=== PATIENT | female | born 1990 | race Caucasian/White ===

== ENCOUNTER 2018-08-26 17:57 | Emergency (ER) | payer OTHER ==
[~2018-08-26] VITALS: Ht 170.2 cm; Wt 76.0 kg
[~2018-08-26 17:57] MED LIST: NAPR-985 PO; [UNRECOGNIZED DRUG - CODE]
[2018-08-26 18:05] VITALS: Ht 170.2 cm; Wt 76.0 kg
[2018-08-26] MEDS ORDERED: IBUPROFEN 600 MG TAB PO ONE (19:00)
[2018-08-26] MEDS ORDERED: DIAZEPAM 5 MG TAB PO ONE (19:00)
--- NOTE | 2018-08-26 19:24 | ERD ---
ER Documentation Chief Complaint Chief Complaint right knee pain today, no injury HPI 27-year-old female presented to the emergency department complaining of right knee pain after injury today. She states she was at the pool with her siblings when she went down a slide and when she got out of the pool she accidentally twisted the right knee causing injury. She reports 10/10 right knee pain which is constant and worse with movement. She took no medication for relief of symptoms. She denies any head injury or loss of consciousness. She denies any other symptoms or injuries at this time. ROS All systems reviewed and are negative except as per history of present illness. Medications Home Meds Active Scripts Naproxen* (Naprosyn*) 500 Mg Tablet, 500 MG PO BID PRN for PAIN AND/OR INFLAMMATION, #30 TAB Prov:CARLY LEMON PA-C 08/26/18 Reported Medications Acetaminophn/Pyr Ma/Pamabrom (Pamprin Multi-Symptom Tab) 1 Tab Tablet 08/01/10 Allergies Allergies: Coded Allergies: Nickel (Verified Allergy, Mild, RASH, 08/01/10) PMhx/Soc History of Surgery: Yes (gastric sleeve) Anesthesia Reaction: No Hx Neurological Disorder: No Hx Respiratory Disorders: No Hx Cardiac Disorders: No Hx Psychiatric Problems: No Hx Miscellaneous Medical Probl: No Hx Alcohol Use: Yes (ON OCCASSION) Hx Substance Use: Yes (MARIJUANA DAILY) Hx Tobacco Use: No Smoking Status: Never smoker FmHx Family History: No diabetes Physical Exam Vitals Vital Signs Date Temp Pulse Resp B/P (MAP) Pulse Ox O2 O2 Flow FiO2 Time Delivery Rate 08/26/18 97.8 84 18 116/57 100 18:05 (76) Physical Exam Const: No acute distress Head: Atraumatic Eyes: Normal Conjunctiva ENT: Normal External Ears, Nose and Mouth. Neck: Full range of motion. No meningismus. Resp: No respiratory distress. Skin: No petechiae or rashes Ext: R Knee is stuck in flexed position at approximately 45 degrees. Unable to fully extend knee secondary to pain. Tenderness palpation of the anterior and posterior right knee. Unable to complete special testing of the knee secondary to pain. Neur: Awake and alert Psych: Normal Mood and Affect Results 24 hrs Laboratory Tests Test 08/26/18 18:52 POC Beta HCG, Qualitative NEGATIVE Current Medications Medications Dose Sig/Daron Start Time Status Last (Trade) Ordered Route PRN Stop Time Admin Dose Reason Admin Ibuprofen 600 mg ONCE ONCE 08/26/18 DC 08/26/18 (Motrin) PO 19:00 18:57 08/26/18 19:01 Diazepam 5 mg ONCE ONCE 08/26/18 DC 08/26/18 (Valium) PO 19:00 18:57 08/26/18 19:01 1 tab ONCE ONCE 08/26/18 DC 08/26/18 Acetaminophen PO 21:00 20:40 / 08/26/18 21:01 Hydrocodone Bitart ([place] ()) Ondansetron 4 mg ONCE STAT 08/26/18 DC 08/26/18 HCl (Zofran ODT 20:33 20:40 Odt) 08/26/18 20:[address] [address] Radiology Main Line: [phone] DIAGNOSTIC IMAGING REPORT Patient: PETRA MACIAS : 1990 Age: 27 Sex: F MR #: [id number] DOS: 08/26/18 0000 Ordering MD: CARLY LEMON PA-C Location: [facility] Room/Bed: PROCEDURE: Ultrasound examination of the right lower extremity with Doppler. CLINICAL INDICATION: Right leg pain and swelling. TECHNIQUE: Multiple sonographic images of the right lower extremity were performed with berg scale and color Doppler. COMPARISON: None. FINDINGS: The right common femoral, superficial femoral and popliteal veins demonstrate normal color flow, waveforms, compression and response augmentation. There is no evidence of deep venous thrombosis. IMPRESSION: No evidence of deep venous thrombosis within the right lower extremity. .Wicho Naranjo MD, MD Date Time Electronically viewed and signed by .Wicho Naranjo MD, MD on 08/26/2018 20:06 .T/ CC: CARLY LEMON PA-C [id number] [address], [place] [address] Radiology Main Line: [phone] DIAGNOSTIC IMAGING REPORT Patient: PETRA MACIAS : 1990 Age: 27 Sex: F MR #: [id number] DOS: 08/26/18 0000 Ordering MD: CARLY LEMON PA-C Location: [facility] Room/Bed: PROCEDURE: Right knee. CLINICAL INDICATION: Pain. TECHNIQUE: 4 views including AP, lateral and oblique views of the right knee were obtained. The images reviewed on a PACS workstation. COMPARISON: None. FINDINGS: There is no fracture, dislocation or bone destruction. There is no significant joint space narrowing or effusion. Bone mineralization is within normal limits. There is no radiopaque foreign body or abnormal calcification. IMPRESSION: No evidence of fracture. .Wicho Naranjo MD, MD Date Time Electronically viewed and signed by .Wicho Naranjo MD, MD on 08/26/2018 20:26 .T/ CC: CARLY LEMON PA-C [id number] Procedures/MDM 27-year-old female presents the emergency department complaining of injury to the right knee. Patient was administered ibuprofen and Valium in the department with improvement of her symptoms. Repeat examination showed improved straightening of the right knee. X-ray of the right knee revealed no acute abnormalities. Ultrasound of the right lower extremity revealed no evidence of DVT. Splint Assessment: Neurovascularly intact post splint placement with good fit. Patient's extremity symptoms have stabilized while they have been evaluated in the department and are appropriate for outpatient follow up. No evidence of compartment syndrome, neurologic injury, vascular injury, open joint, open fracture, tendon laceration, or foreign body. Patient will need 24 to 48-hour follow-up with orthopedic physician. She was given resources to do so. She understands and agrees with the diagnosis and plan. No evidence of life-threatening pathology at time of discharge. Pt/family in agreement with discharge plan/diagnosis. Pt/family advised to return immediately with any new or worsening symptoms. Follow-up with primary care physician within the next 1-2 days. Departure Diagnosis: Primary Impression: Knee injury Encounter type: initial encounter Laterality: right Qualified Codes: S89.91XA - Unspecified injury of right lower leg, initial encounter Condition: CARLY Freeman PA-C Aug 26, 2018 19:24
[2018-08-26] MEDS ORDERED: ONDANSETRON (ODT) 4 MG TAB ODT STA (20:33)
[2018-08-26] MEDS ORDERED: HYDROCODONE/APAP (10/325) TAB PO ONE (21:00)
== END 2018-08-26 21:10 | disposition home or self-care (01) ==
LOC: FTE 17:57
DX: S89.91XA Unspecified injury of right lower leg, initial encounter (principal); X50.1XXA Overexertion from prolonged static or awkward postures, initial encounter; Y92.196 Pool of other specified residential institution as the place of occurrence of the external cause
CPT/HCPCS: 29505; 73562; 81025; 93971; Z7502; Z7610